=== PATIENT | female | born 1995 | race Caucasian/White ===

== ENCOUNTER 2016-12-12 15:34 | Emergency (ER) | payer OTHER ==
[~2016-12-12] VITALS: Ht 157.5 cm; Wt 43.1 kg
[~2016-12-12 15:34] MED LIST: IMITREX50 MG PO; MOTRIN600 MG PO; NAPROXEN375 MG PO; REGLAN10 MG PO; TORADOL10 MG PO; ZOVIRAX200 MG PO; ZOVIRAX400 MG PO
[2016-12-12 16:31] LABS: BASOPHIL COUNT 0.1 K/uL (0-0.1); EOSINOPHIL (%) 3.2 % (0-5); EOSINOPHIL COUNT 0.3 K/uL (0-0.3); HEMATOCRIT 38.6 % (36.0-46.0); IMMATURE GRANULOCYTE (%) 0.1 % (0.0-0.7); IMMATURE GRANULOCYTE COUNT 0.1 K/uL; LYMPHOCYTE COUNT 4.4 K/uL (1.0-2.8); MCH 31.4 PG (29.0-34.0); MCHC 34.2 G/DL (30.0-36.0); MCV 91.9 FL (83-99); MEAN PLAT.VOLUME 10.4 uM^3 (9.5-12.4); MONOCYTE (%) 12.1 % (3-12); MONOCYTE COUNT 1.2 K/uL (0-0.8); NEUTROPHIL (%) 38.4 % (45-76); NEUTROPHIL COUNT 3.7 K/uL (1.8-6.4); PLATELET COUNT 238 K/uL (156-360); RBC DIS.WIDTH-CV 11.7 % (11.8-14.6); RBC DIS.WIDTH-SD 38.8 % (39-53); WHITE BLOOD COUNT 9.6 K/uL (4.1-10.2)
[2016-12-12 16:40] LABS: CHLORIDE 107 mEq/L (99-109); POTASSIUM 3.5 mEq/L (3.7-5.4); SODIUM 142 mEq/L (136-147)
[2016-12-12 16:42] LABS: GLUCOSE 100 mg/dL (70-99)
[2016-12-12 16:43] LABS: ANION GAP 8 MEQ/L (2-14)
[2016-12-12 16:46] LABS: GFR ESTIMATE (CALCULATED) > 59 mL/min/
[2016-12-12 16:47] LABS: UREA NITROGEN (BUN) 12 mg/dL (9-23)
[2016-12-12 16:54] LABS: QUANTITATIVE HCG < 4.0 MIU/ML
[2016-12-12 17:39] VITALS: BP 128/84
== END 2016-12-12 17:39 | disposition home or self-care (01) ==
LOC: EME 15:34
PROVIDERS: Physician Assistant
DX: R42 Dizziness and giddiness (principal); R41.0 Disorientation, unspecified
CPT/HCPCS: 70450; 80048; 84702; 85025; 99281; 99284

== ENCOUNTER 2017-01-12 23:11 | Emergency (ER) | payer OTHER ==
[~2017-01-12] VITALS: Ht 157.5 cm; Wt 44.6 kg
[2017-01-12 23:32] VITALS: BP 107/74
[2017-01-12 23:57] LABS: MCH 31.3 PG (29.0-34.0); MCHC 33.3 G/DL (30.0-36.0); MCV 93.8 FL (83-99); MEAN PLAT.VOLUME 10.6 uM^3 (9.5-12.4); PLATELET COUNT 234 K/uL (156-360); RBC DIS.WIDTH-SD 40.2 % (39-53); RED BLOOD COUNT 4.16 M/uL (3.80-5.20); WHITE BLOOD COUNT 8.7 K/uL (4.1-10.2)
[2017-01-13] LABS: ADD MIUA? YES; BILIRUBIN NEGATIVE; BLOOD NEGATIVE; COLOR YELLOW ((YELLOW)); GLUCOSE (STRIP) NEGATIVE; KETONES NEGATIVE; LEUKOCYTES TRACE; NITRITE NEGATIVE; PROTEIN (STRIP) 30; UROBILINOGEN 0.2 MG/DL (0.2-1.0)
[2017-01-13 00:09] LABS: CHLORIDE 105 mEq/L (99-109); POTASSIUM 3.9 mEq/L (3.7-5.4); SODIUM 142 mEq/L (136-147)
[2017-01-13 00:11] LABS: GLUCOSE 85 mg/dL (70-99)
[2017-01-13 00:12] LABS: ANION GAP 8 MEQ/L (2-14)
[2017-01-13 00:15] LABS: GFR ESTIMATE (CALCULATED) > 59 mL/min/
[2017-01-13 00:16] LABS: UREA NITROGEN (BUN) 12 mg/dL (9-23)
[2017-01-13 00:20] LABS: BACTERIA NONE SEEN /HPF; EPITHELIAL CELLS 1+ /HPF; MUCUS NONE SEEN /LPF; RED BLOOD CELLS 0-5 /HPF (0-5); UCUL ADDED? NO; WHITE BLOOD CELLS 0-5 /HPF (0-5)
[2017-01-13 00:23] LABS: QUANTITATIVE HCG < 4.0 MIU/ML
[2017-01-13] MEDS ORDERED: ZOFRAN ODT4 MG PO (02:53)
[2017-01-13] MEDS ORDERED: PERCOCET 5/31 TABLET PO (02:53)
== END 2017-01-13 03:01 | disposition home or self-care (01) ==
LOC: EME 23:11
DX: N20.0 Calculus of kidney (principal)
CPT/HCPCS: 76770; 80048; 81003; 84702; 85027; 99281; 99284

== ENCOUNTER 2017-05-14 22:49 | Emergency (ER) | payer OTHER ==
[~2017-05-14] VITALS: Ht 162.6 cm; Wt 47.5 kg
[~2017-05-14 22:49] MED LIST changes: +PERCOCET 5/31 TABLET PO; +ZOFRAN ODT4 MG PO
[2017-05-15] MEDS ORDERED: NORCO 5/3251 TABLET PO (00:31)
[2017-05-15 00:42] VITALS: BP 143/92
== END 2017-05-15 00:43 | disposition home or self-care (01) ==
LOC: EME 22:49
DX: K08.89 Other specified disorders of teeth and supporting structures (principal)
CPT/HCPCS: 99281; 99284

== ENCOUNTER 2018-04-26 16:49 | Emergency (ER) | payer OTHER ==
[~2018-04-26] VITALS: Ht 157.5 cm; Wt 51.8 kg
[~2018-04-26 16:49] MED LIST changes: +NORCO 5/3251 TABLET PO
[2018-04-26] MEDS ORDERED: NORCO 5/3251 TABLET PO (17:35)
[2018-04-26 17:57] VITALS: BP 133/76
== END 2018-04-26 17:59 | disposition home or self-care (01) ==
LOC: EME 16:49 → EXP 16:49
DX: K08.89 Other specified disorders of teeth and supporting structures (principal)
CPT/HCPCS: 99281; 99282